=== PATIENT | male | born 1990 | race Caucasian/White ===

== ENCOUNTER 2017-12-25 09:54 | Emergency (ER) | payer OTHER ==
--- NOTE | 2017-12-25 10:07 | EDM.PDOC ---
ED HPI GENERAL MEDICAL PROBLEM - General Chief Complaint: Upper Extremity Injury/Pain Stated Complaint: DISLOCATED RT SHOULDER Time Seen by Provider: 12/25/17 10:07 Source of Information: Reports: Patient, Old Records, RN, RN Notes Reviewed History Limitations: Reports: No Limitations - History of Present Illness INITIAL COMMENTS - FREE TEXT/NARRATIVE: Pt presents to ER by POV with c/o right shoulder dislocation x2. 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 Pt states the shoulder popped, and looked very deformed. He states he could feel the head of the humerus below and forward to the shoulder socket. He was able to manipulate the shoulder and popped it back in himself. He limited use of the right upper ext. after he relocated his shoulder, but then at approx. [id number] this morning he woke and it popped out again, but this time was even farther anterior. He again reduced the shoulder himself. He is concerned because it feels like it could slip out again. He denies any fall, or high impact injury to the right shoulder recently or remotely. 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 [No Known Home Meds] 09/30/14 [History] Ibuprofen 600 mg PO ASDIRECTED PRN 12/25/17 [History] Past Medical History Musculoskeletal History: Reports: Other (See Below) (joint hypermobility) Social & Family History - Family History Family Medical History: Noncontributory - Tobacco Use Smoking Status *Q: Never Smoker - Living Situation & Occupation Living situation: Reports: Other (lives in [place], [place]) Occupation: Employed Review of Systems - Review of Systems Review Of Systems: ROS reveals no pertinent complaints other than HPI. ED EXAM, GENERAL - Physical Exam Exam: See Below Exam Limited By: No Limitations General Appearance: Alert, WD/WN, No Apparent Distress Head: Atraumatic, Normocephalic Neck: Normal Inspection Respiratory/Chest: No Respiratory Distress Extremities: Normal Capillary Refill, Limited Range of Motion (Rt shoulder with pt reporting sensation of instability). No: Joint Swelling Neurological: Alert, Oriented, No Motor/Sensory Deficits Psychiatric: Normal Affect, Normal Mood Skin Exam: Warm, Dry, Intact, Normal Color, No Rash Course - Vital Signs Last Recorded V/S: Last Vital Signs Temp 36.9 C 12/25/17 10:06 Pulse 68 12/25/17 10:06 Resp 16 12/25/17 10:06 BP 117/66 12/25/17 10:06 Pulse Ox 98 12/25/17 10:06 - Orders/Labs/Meds Orders: Active Orders 24 hr Category Date Time Status Immobilizer [RC] ASDIRECTED Care 12/25/17 10:25 Active Departure - Departure Time of Disposition: 10:26 Disposition: Home, Self-Care 01 Condition: Good Clinical Impression: Recurrent dislocation of right shoulder - Discharge Information Instructions: Shoulder Dislocation Forms: ED Department Discharge Additional Instructions: Rest, and ice packs to right shoulder to reduce pain. No use of right shoulder. Wear shoulder immobilizer until seen by orthopedic surgeon. Rx: Naprosyn 500mg *Take with food. Follow up with orthopedic surgeon at the first available appointment. See your primary doctor if your insurance requires a referral to be seen by the orthopedic surgeon. Return to ER if your shoulder dislocates again and you cannot get it back in place immediately on your own. - My Orders Last 24 Hours: My Active Orders 12/25/17 10:25 Immobilizer [RC] ASDIRECTED - Assessment/Plan Last 24 Hours: My Active Orders 12/25/17 10:25 Immobilizer [RC] ASDIRECTED
[2017-12-25 10:13] VITALS: BP 117/66
== END 2017-12-25 10:48 | disposition home or self-care (01) ==
LOC: DL.ED 09:54
DX: M24.411 Recurrent dislocation, right shoulder (principal)
CPT/HCPCS: 99283